=== PATIENT | female | born 1945 | race Caucasian/White ===

== ENCOUNTER → 2017-01-22 | Outpatient (CLI) | payer MEDICARE, OTHER ==
[~2017-01-22] MED LIST: ALENDRONATE SOD70 MG PO; ANTIVERT 25MG25 MG PO; ARICEPT10 M1 PO; ARICEPT5 M1 PO; ASPIRIN 32325 MG/TAB PO; ATARAX 25MG25 MG/TAB PO; BACTRIM DS 8001 TA1 PO; BETAPACE 80MG80 MG PO; CARAFATE 1GM1 G PO; CARDIZEM CD120 MG PO; COUMADIN3 MG PO; COUMADIN5 MG PO; DILTIAZEM CD120 MG PO; DILTIAZEM CD240 MG PO; ELIDEL1% TP; JANTOVEN2.5 MG PO; LEVOTHYROXIN0.075 MG PO; LISINOPRIL5 MG PO; MIRALAX17 GM PO; MULTAQ400 M1 PO; NAMENDA10 MG PO; NAMENDA5 MG PO; OMEGA 31000 MG PO; PEPCID 20MG TAB20 MG PO; PREDNISONE10 MG PO; SOTALOL HYDROCH80 MG PO; TRIAMCINOLONE A60 M1 TOP; VITAMIN D32000 UNIT PO; VITAMIN D50000 I2 PO; WARFARIN SOD5 MG PO; WELLBUTRIN XL150 M2 PO; ZYRTEC10 MG PO
== END ==
LOC: LAB 10:16
DX: F32.1 Major depressive disorder, single episode, moderate (principal); E55.9 Vitamin D deficiency, unspecified; R63.4 Abnormal weight loss

== ENCOUNTER → 2017-02-06 | Outpatient (CLI) | payer MEDICARE, OTHER ==
[2016-07-31 17:10] VITALS: BP 159/92
== END ==
LOC: LAB 11:20
DX: R41.0 Disorientation, unspecified (principal); R53.1 Weakness; R10.9 Unspecified abdominal pain; N32.9 Bladder disorder, unspecified

== ENCOUNTER → 2017-03-26 | Outpatient (CLI) | payer MEDICARE, OTHER ==
[~2017-03-26] VITALS: Ht 165.1 cm; Wt 68.2 kg
[2017-03-26 11:05] VITALS: BP 152/58
== END ==
LOC: AMSURD 10:52
DX: I10 Essential (primary) hypertension (principal); I48.91 Unspecified atrial fibrillation

== ENCOUNTER → 2017-04-04 | Outpatient (CLI) | payer MEDICARE, OTHER ==
[2017-03-26 11:05] VITALS: BP 152/58
== END ==
LOC: CARDREHAB 09:32
DX: I10 Essential (primary) hypertension (principal); I48.91 Unspecified atrial fibrillation
CPT/HCPCS: A9500

== ENCOUNTER → 2017-04-07 | Outpatient (CLI) | payer MEDICARE, OTHER ==
[~2017-04-07] VITALS: Ht 165.1 cm; Wt 68.2 kg
[2017-04-07 09:51] VITALS: BP 145/51
== END ==
LOC: AMSURD 09:31
DX: I48.91 Unspecified atrial fibrillation (principal); I10 Essential (primary) hypertension

== ENCOUNTER → 2018-01-16 | Outpatient (CLI) | payer MEDICARE, OTHER ==
[2017-04-07 09:51] VITALS: BP 145/51
== END ==
LOC: LAB 11:45
DX: I48.91 Unspecified atrial fibrillation (principal); I10 Essential (primary) hypertension; L40.8 Other psoriasis; G30.9 Alzheimer's disease, unspecified; Z12.12 Encounter for screening for malignant neoplasm of rectum; G30.8 Other Alzheimer's disease; L20.9 Atopic dermatitis, unspecified

== ENCOUNTER → 2018-07-03 | Outpatient (CLI) | payer MEDICARE, OTHER ==
[2017-04-07 09:51] VITALS: BP 145/51
[2018-07-03 15:58] LABS: HEMATOCRIT 46.4 % (37.0-47.0); HEMOGLOBIN 14.9 g/dL (12.5-16.0); MEAN CELL VOLUME 90 fl (78-100); MEAN CORPUSCULAR HEMOGLOBIN 29 pg (27-31); MEAN CORPUSCULAR HGB CONC 32 g/dL (33-37); PLATELET COUNT 208 K/mm3 (130-400); RED BLOOD COUNT 5.16 M/mm3 (4.10-5.30); RED CELL DISTRIBUTION WIDTH 13.6 % (11.5-14.5); WHITE BLOOD COUNT 8.8 K/mm3 (4.8-10.8)
[2018-07-03 16:09] LABS: CALCIUM 9.8 mg/dL (8.4-10.2); POTASSIUM 4.3 mmol/L (3.6-5.0); TOTAL BILIRUBIN 0.4 mg/dL (0.2-1.3); TOTAL PROTEIN 6.6 g/dL (6.3-8.2)
[2018-07-03 17:32] LABS: MEAN PLATELET VOLUME 12.1 fl (7.4-10.4)
[2018-07-03 17:42] LABS: LYMPHOCYTE 22 % (20-51); MONOCYTE 12 % (3-10); NEUTROPHILS 63 % (42-75)
== END ==
LOC: LAB 15:12
PROVIDERS: Family Medicine
DX: E03.9 Hypothyroidism, unspecified (principal); I10 Essential (primary) hypertension; M81.8 Other osteoporosis without current pathological fracture; R53.1 Weakness

== ENCOUNTER → 2018-07-06 | Outpatient (CLI) | payer MEDICARE, OTHER ==
[2017-04-07 09:51] VITALS: BP 145/51
== END ==
LOC: LAB 08:20
DX: E03.9 Hypothyroidism, unspecified (principal); I10 Essential (primary) hypertension; M81.8 Other osteoporosis without current pathological fracture

== ENCOUNTER → 2019-09-22 | Outpatient (CLI) | payer MEDICARE, OTHER ==
[2017-04-07 09:51] VITALS: BP 145/51
== END ==
LOC: RAD 12:54 → MAMMO 13:00 → RAD 13:00
DX: Z13.820 Encounter for screening for osteoporosis (principal); M81.8 Other osteoporosis without current pathological fracture

== ENCOUNTER → 2019-10-21 | Outpatient (CLI) | payer MEDICARE, OTHER ==
[~2019-10-21] VITALS: Ht 172.7 cm; Wt 73.2 kg
[~2019-10-21] MED LIST changes: +AMLODIPINE BES2.5 MG PO; +IPRATROPIUM BROM3 M1 IH; +PREDNISONE20 M1 PO; +ROBITUSSIN COU237 M2 PO; +SENNA8.6 M1 PO; +TRAMADOL 50 MG TAB PO; +TYLENOL 325MG325 MG PO; +ZITHROMAX 250M250 MG PO
[2019-10-21 11:39] VITALS: BP 80/56
[2019-10-21 11:52] LABS: POTASSIUM 3.6 mmol/L (3.5-5.1)
[2019-10-21 11:54] LABS: CALCIUM 9.7 mg/dL (8.3-10.5)
[2019-10-21 12:36] VITALS: BP 161/69
[2019-10-21 13:20] VITALS: BP 107/52
[2019-10-21 13:50] VITALS: BP 107/52
== END | disposition still patient (30) ==
LOC: LAB 10:47 → AMSURD 10:47
PROVIDERS: Nurse Practitioner Family
DX: M17.12 Unilateral primary osteoarthritis, left knee (principal); J02.9 Acute pharyngitis, unspecified; R19.7 Diarrhea, unspecified
CPT/HCPCS: J7030

== ENCOUNTER 2019-10-25 14:16 | Emergency (ER) | payer MEDICARE, OTHER ==
[~2019-10-25] VITALS: Wt 74.2 kg
[~2019-10-25 14:16] MED LIST changes: -IPRATROPIUM BROM3 M1 IH; -PREDNISONE20 M1 PO; -ROBITUSSIN COU237 M2 PO; -TRAMADOL 50 MG TAB PO; -ZITHROMAX 250M250 MG PO
[2019-10-25 14:55] LABS: HEMOGLOBIN 13.8 g/dL (12.5-16.0); MEAN CELL VOLUME 91 fl (78-100); MEAN CORPUSCULAR HEMOGLOBIN 29 pg (27-31); MEAN CORPUSCULAR HGB CONC 31 g/dL (33-37); PLATELET COUNT 234 K/mm3 (130-400); RED BLOOD COUNT 4.83 M/mm3 (4.10-5.30); RED CELL DISTRIBUTION WIDTH 13.2 % (11.5-14.5); WHITE BLOOD COUNT 9.1 K/mm3 (4.8-10.8)
[2019-10-25 15:01] LABS: ALBUMIN 3.6 g/dL (3.4-4.8)
[2019-10-25 15:02] LABS: POTASSIUM 3.7 mmol/L (3.5-5.1); SODIUM 143 mmol/L (136-145)
[2019-10-25 15:03] LABS: CALCIUM 9.4 mg/dL (8.3-10.5)
[2019-10-25 15:04] LABS: GLUCOSE 98 mg/dL (65-105); TOTAL PROTEIN 6.6 g/dL (6.2-8.1)
[2019-10-25 15:05] LABS: CARBON DIOXIDE 24 mmol/L (23-31)
[2019-10-25 15:06] LABS: TOTAL BILIRUBIN 0.5 mg/dL (0.2-1.2)
[2019-10-25 15:10] LABS: AST-SGOT 65 U/L (5-34)
[2019-10-25 15:11] LABS: ALT/SGPT 103 U/L (0-55)
[2019-10-25] MEDS ORDERED: TRAMADOL 50 MG TAB PO (15:29)
[2019-10-25 15:30] LABS: TROPONIN-I < 0.03 ng/mL (<0.030)
[2019-10-25 15:32] LABS: LYMPHOCYTE 16 % (20-51); MONOCYTE 12 % (3-10); NEUTROPHILS 72 % (42-75)
[2019-10-25] MEDS ORDERED: IPRATROPIUM BROM3 M1 IH (16:33)
[2019-10-25] MEDS ORDERED: ZITHROMAX 250M250 MG PO (16:43)
[2019-10-25] MEDS ORDERED: PREDNISONE20 M1 PO (16:43)
[2019-10-25] MEDS ORDERED: ROBITUSSIN COU237 M2 PO (16:49)
[2019-10-25 16:51] VITALS: BP 150/92
== END 2019-10-25 16:56 | disposition home or self-care (01) ==
LOC: ED 14:16
PROVIDERS: Nurse Practitioner Primary Care
DX: J20.9 Acute bronchitis, unspecified (principal); I48.91 Unspecified atrial fibrillation; I10 Essential (primary) hypertension; F03.90 Unspecified dementia, unspecified severity, without behavioral disturbance, psychotic disturbance, mood disturbance, and anxiety; Z88.0 Allergy status to penicillin

== ENCOUNTER 2020-01-07 08:32 | Emergency (ER) | payer MEDICARE, OTHER ==
[~2020-01-07] VITALS: Wt 70.8 kg
[~2020-01-07 08:32] MED LIST changes: -BETAPACE 80MG80 MG PO; +BETAPACE80 M1 PO; +DOCUSATE SODIUM1 TA3 PO; +IPRATROPIUM BROM3 M1 IH; -LISINOPRIL5 MG PO; +PREDNISONE20 M1 PO; +ROBITUSSIN COU237 M2 PO; -SENNA8.6 M1 PO; +TRAMADOL 50 MG TAB PO; +WELLBUTRIN 75MG75 MG PO; -WELLBUTRIN XL150 M2 PO; +ZESTRIL5 M1 PO; +ZITHROMAX 250M250 MG PO
[2020-01-07 09:13] LABS: HEMATOCRIT 44.9 % (37.0-47.0); HEMOGLOBIN 14.1 g/dL (12.5-16.0); MEAN CELL VOLUME 93 fl (78-100); MEAN CORPUSCULAR HEMOGLOBIN 29 pg (27-31); MEAN CORPUSCULAR HGB CONC 31 g/dL (33-37); MEAN PLATELET VOLUME 11.4 fl (7.4-10.4); PLATELET COUNT 203 K/mm3 (130-400); RED BLOOD COUNT 4.81 M/mm3 (4.10-5.30); RED CELL DISTRIBUTION WIDTH 13.9 % (11.5-14.5); WHITE BLOOD COUNT 5.9 K/mm3 (4.8-10.8)
[2020-01-07 09:16] LABS: ALBUMIN 3.6 g/dL (3.4-4.8)
[2020-01-07 09:17] LABS: POTASSIUM 3.9 mmol/L (3.5-5.1); SODIUM 144 mmol/L (136-145)
[2020-01-07 09:18] LABS: CALCIUM 10.3 mg/dL (8.3-10.5); PROTHROMBIN TIME 10.1 SECONDS (9.0-12.0)
[2020-01-07 09:19] LABS: GLUCOSE 98 mg/dL (65-105)
[2020-01-07 09:20] LABS: CARBON DIOXIDE 24 mmol/L (23-31)
[2020-01-07 09:21] LABS: TOTAL BILIRUBIN 0.5 mg/dL (0.2-1.2)
[2020-01-07 09:24] LABS: AST-SGOT 25 U/L (5-34)
[2020-01-07 09:25] LABS: ALT/SGPT 35 U/L (0-55)
[2020-01-07 09:27] LABS: LYMPHOCYTE 30 % (20-51); MONOCYTE 16 % (3-10); NEUTROPHILS 50 % (42-75)
[2020-01-07 09:42] LABS: TROPONIN-I < 0.03 ng/mL (<0.030)
[2020-01-07 10:07] LABS: URINE APPEARANCE CLOUDY; URINE BILIRUBIN NEGATIVE (NEGATIVE); URINE BLOOD NEGATIVE (NEGATIVE); URINE COLOR YELLOW; URINE GLUCOSE NEGATIVE (NEGATIVE); URINE KETONE NEGATIVE (NEGATIVE); URINE LEUKOCYTE ESTERASE NEGATIVE (NEGATIVE); URINE MUCUS PRESENT (NOT PRESENT); URINE NITRATE NEGATIVE (NEGATIVE); URINE PROTEIN(semi-quant) TRACE mg/dL (NEGATIVE); URINE UROBILINOGEN NORMAL (NORMAL); URINE WBC 31-50 /hpf (0-3)
[2020-01-07 10:10] VITALS: BP 147/80
[2020-01-07] MEDS ORDERED: IMODIUM 2MG CAPS2 MG PO (10:51)
[2020-01-07] MEDS ORDERED: OSCAL 500MG/VI500 MG PO (10:54)
== END 2020-01-07 10:26 | disposition short-term general hospital (02) ==
LOC: ED 08:32
PROVIDERS: Nurse Practitioner
DX: G45.9 Transient cerebral ischemic attack, unspecified (principal); I63.89 Other cerebral infarction; G81.94 Hemiplegia, unspecified affecting left nondominant side; R29.810 Facial weakness; R47.89 Other speech disturbances; R20.2 Paresthesia of skin; I48.91 Unspecified atrial fibrillation; I10 Essential (primary) hypertension; F03.90 Unspecified dementia, unspecified severity, without behavioral disturbance, psychotic disturbance, mood disturbance, and anxiety; Z79.891 Long term (current) use of opiate analgesic; Z88.0 Allergy status to penicillin
CPT/HCPCS: J0360; J2405; J2997; J7030